=== PATIENT | male | born 1990 ===

== ENCOUNTER 2018-04-15 19:56 | Outpatient (CLI) | payer SELFPAY | END 2018-04-15 19:57 | disposition EMS.NT | LOC: EMS 19:56 | PROVIDERS: ATTEND Surgery | DX: M25.512 Pain in left shoulder (principal); V53.5XXA Driver of pick-up truck or van injured in collision with car, pick-up truck or van in traffic accident, initial encounter; Y92.413 State road as the place of occurrence of the external cause ==